=== PATIENT | male | born 1970 | race Caucasian/White ===

== ENCOUNTER 2021-01-27 05:43 | Emergency (ER) | payer BC ==
[2021-01-27 05:59] VITALS: BP 141/82
[2021-01-27] MEDS ORDERED: IBUPROFEN 600 MG TABLET PO STA (06:10)
--- NOTE | 2021-01-27 06:10 | ED Physician Documentation ---
History of Present Illness - Stated complaint Stated Complaint: LUMP ON LT SIDE - Chief complaint Chief Complaint: General - History obtained from History obtained from: Patient - Additonal information Additional information: 50-year-old man presents with right breast swelling, erythema, and warmth over the past few days. Also with pain that was gradual in onset, nonradiating, aching, worse with pressing on it. Denies fevers or nipple discharge. Review of Systems Constitutional: denies: Fever Skin: reports: Other (erythma) PD PAST MEDICAL HISTORY - Past Medical History Past Medical History: Yes Psych: ADD/ADHD - Past Surgical History Past Surgical History: Yes Ortho: Rotator cuff repair - Present Medications Home Medications: Ambulatory Orders Medication Instructions Recorded Confirmed Dextroamphetamine/Amphetamine 15 mg PO BID 01/27/21 01/27/21 [Adderall 15 mg Tablet] cephALEXin [Keflex] 500 mg PO Q6H #28 01/27/21 - Allergies Allergies/Adverse Reactions: Allergies Allergy/AdvReac Type Severity Reaction Status Date / Time No Known Drug Allergies Allergy Verified 01/27/21 06:01 - Social History Does the pt smoke?: No Smoking Status: Never smoker Does the pt drink ETOH?: Yes Does the pt have substance abuse?: No - Immunizations Immunizations are current?: Yes - POLST Patient has POLST: No PD ED PE NORMAL - Vitals Vital signs reviewed: Yes - General General: Alert and oriented X 3, No acute distress, Well developed/nourished - HEENT HEENT: Atraumatic, PERRL, EOMI - Derm Derm: Other (2cm erythema and mild swelling without fluctuance just lateral to right areola) - Neuro Neuro: Alert and oriented X 3, No motor deficit, No sensory deficit Results - Vitals Vitals: Vital Signs - 24 hr 01/27/21 05:52 Temperature 36.4 C L Heart Rate 91 Respiratory 18 Rate Blood Pressure 141/82 H O2 Saturation 99 Oxygen O2 Source Room air PD MEDICAL DECISION MAKING - ED course ED course: 50-year-old man presents with cellulitis of the right nipple. Bedside ultrasound showed cobblestoning c/w cellulitis. no evidence of discrete abscess. d/w Dr Mcclendon who recommends warm compresses, f/u in surgery clinic. possible brewer gland infection. return precautions given. antibiotics prescribed. Departure - Departure Disposition: 01 Home, Self Care Clinical Impression: Cellulitis Condition: Good Instructions: Cellulitis Dc Follow-Up: Gudelia Mcclendon MD [Provider Admit Priv/Credential] - Prescriptions: cephALEXin [Keflex] 500 mg PO Q6H #28 Comments: You are seen in the emergency department for an infection around the nipple. Please draw a line around the red spot and monitor for spread. If it goes beyond the lines and should come back to the doctor right away. Take your antibiotics as prescribed and follow-up in surgical clinic in 48 hours. Use a warm compress for 20 minutes every hour. Return to the emergency department if you have any fevers, new or worsening symptoms or other concerns.
[2021-01-27] MEDS ORDERED: cephALEXin 250 MG CAPSULE PO STA (06:20)
[2021-01-27] MEDS ORDERED: IBUPROFEN 600 MG TABLET PO ONE (06:26)
[2021-01-27] MEDS ORDERED: cephALEXin 250 MG CAPSULE PO ONE (06:31)
== END 2021-01-27 06:32 | disposition home or self-care (01) ==
LOC: ED 05:43
DX: N61.0 Mastitis without abscess (principal)
CPT/HCPCS: 99282; 99283; A9270

== ENCOUNTER 2021-02-21 06:42 | Emergency (ER) | payer BC ==
--- NOTE | 2021-02-21 07:04 | ED Physician Documentation ---
PD HPI BACK PAIN - Stated complaint Stated Complaint: BACK PX - Chief complaint Chief Complaint: Back Pain - History obtained from History obtained from: Patient - History of Present Illness Timing - onset: How many weeks ago (1) Timing - duration: Weeks (1) Timing - details: Abrupt onset (onset with just bending, of right low back pain that has persisted. Worse with ROM. No abd pain. No lower ext paresis nor paresthesias.), Still present Location: Lower, Right Quality: Pain, Spasm Associated symptoms: No: Fever, Weakness, Numbness, Incontinent of urine Improves with: No: Rest, Meds (has taken Ibuprofen without improvement) Worsened by: Movement, Twisting Contributing factors: Twisting. No: Trauma Similar symptoms before: No diagnosis (episodes of low back pain remotely in the past. No chronic pains.) Recently seen: Not recently seen Review of Systems Constitutional: denies: Fever, Chills Nose: denies: Rhinorrhea / runny nose, Congestion Throat: denies: Sore throat Respiratory: denies: Cough GI: denies: Abdominal Pain, Nausea, Vomiting, Constipation, Diarrhea : denies: Dysuria, Frequency, Incontinent Skin: denies: Rash, Lesions Neurologic: denies: Focal weakness, Numbness, Near syncope PD PAST MEDICAL HISTORY - Past Medical History Past Medical History: Yes Cardiovascular: None Respiratory: None Neuro: None Endocrine/Autoimmune: None GI: None : None HEENT: None Psych: ADD/ADHD Musculoskeletal: Other Derm: None Other Past Medical History: HERNIATED DISCK NECK (C5/C6/C7)... - Past Surgical History Past Surgical History: Yes Ortho: Rotator cuff repair - Present Medications Home Medications: Ambulatory Orders Medication Instructions Recorded Confirmed Dextroamphetamine/Amphetamine 15 mg PO BID 01/27/21 01/27/21 [Adderall 15 mg Tablet] Oxycodone HCl/Acetaminophen 1 each PO Q6H PRN #18 tablet 02/21/21 [Percocet 5-325 mg Tablet] dexAMETHasone [Decadron] 4 mg PO DAILY #5 tablet 02/21/21 diazePAM [Valium] 5 mg PO TID PRN #20 tablet 02/21/21 - Allergies Allergies/Adverse Reactions: Allergies Allergy/AdvReac Type Severity Reaction Status Date / Time No Known Drug Allergies Allergy Verified 01/27/21 06:01 - Social History Does the pt smoke?: No Smoking Status: Never smoker Does the pt drink ETOH?: Yes Does the pt have substance abuse?: No - Immunizations Immunizations are current?: Yes - POLST Patient has POLST: No PD ED PE NORMAL - Vitals Vital signs reviewed: Yes - General General: Alert and oriented X 3, Well developed/nourished, Other (appears uncomfortable with guarded ROM of the low back for flex/twisting. ) - Abdomen Abdomen: Soft, Non tender - Back Back: No CVA TTP, No spinal TTP, Other (tender in paralumbar muscles mainly right. ) - Derm Derm: Normal color, Warm and dry, No rash - Extremities Extremities: No tenderness to palpate, No edema, No calf tenderness / cord - Neuro Neuro: Alert and oriented X 3, No motor deficit, No sensory deficit, Normal speech Results - Vitals Vitals: Vital Signs - 24 hr 02/21/21 02/21/21 06:55 08:15 Temperature 36.1 C L 36.4 C L Heart Rate 68 66 Respiratory 17 14 Rate Blood Pressure 124/74 124/70 O2 Saturation 100 100 Oxygen O2 Source Room air PD MEDICAL DECISION MAKING - ED course Complexity details: considered differential (nontraumatic low back pain without neuro symptoms in legs and no red flags. ), d/w patient Departure - Departure Disposition: 01 Home, Self Care Clinical Impression: Acute low back pain Qualifiers: Back pain laterality: unspecified Sciatica presence: without sciatica Qualified Code(s): M54.5 - Low back pain Condition: Stable Record reviewed to determine appropriate education?: Yes Instructions: ED Spasm Back No Trauma Prescriptions: dexAMETHasone [Decadron] 4 mg PO DAILY #5 tablet Oxycodone HCl/Acetaminophen [Percocet 5-325 mg Tablet] 1 each PO Q6H PRN #18 tablet PRN Reason: pain diazePAM [Valium] 5 mg PO TID PRN #20 tablet PRN Reason: Spasms Comments: Activity as tolerated. Heat and gentle stretching for the back. Physical treatments such as chiropractic or massage are good. You could try acupuncture if you have had luck in the past. Medications for this can include anti-inflammatory muscle relaxants and pain medicines. I wrote prescriptions for each category. Continue Tylenol if needed for mild pains. Back pain episodes are relatively common and can last for days to a few weeks. Follow-up with your primary care if not improved well over the next several days to week. Discharge Date/Time: 02/21/21 08:18
[2021-02-21] MEDS ORDERED: ACETAMINOPHEN 500 MG TABLET PO STA (07:37)
[2021-02-21] MEDS ORDERED: LIDOCAINE PATCH 5% TOP STA (07:38)
[2021-02-21] MEDS ORDERED: methocarbamoL 500 MG TABLET PO STA (07:38)
[2021-02-21] MEDS ORDERED: CHERRY SYRUP 10 ML UDC PO ONE (07:38)
[2021-02-21] MEDS ORDERED: DEXAMETHASONE 10 MG/ML VIAL PO STA (07:38)
[2021-02-21 08:15] VITALS: BP 124/70
== END 2021-02-21 08:18 | disposition home or self-care (01) ==
LOC: ED 06:42
DX: M54.5 Low back pain (principal)
CPT/HCPCS: 99283; 99284; A9270